=== PATIENT | male | born 1995 | race Caucasian/White ===

== ENCOUNTER 2023-06-29 10:40 | Emergency (ER) | payer OTHER ==
[2023-06-29 10:58] VITALS: BP 136/89; O2SAT 99
--- NOTE | 2023-06-29 11:00 | ED Physician Documentation ---
PD HPI UPPER EXT INJURY - Stated complaint Stated Complaint: HAND INJ, DOG BITE - Chief complaint Chief Complaint: Ext Problem - History obtained from History obtained from: Patient - History of Present Illness Location: Right, Hand, Finger (he was walking dogs with his when another dog came up to them and started fighting with their dogs. Pt tried to reach in to stop and was bit on fingers. bit in hand as well. They brought one dog to vet for wound care and then here for eval. Had not reported it. Have name/address of statement services representative.) Where injury occurred: Street Timing - onset: How many hours ago (1-2), Today Timing - details: Abrupt onset Associated symptoms: Other (he did cleanse it by washing at home [employer].). No: Weakness, Numbness Similar symptoms before: Has not had sx before Review of Systems Neurologic: denies: Focal weakness, Numbness PD PAST MEDICAL HISTORY - Past Medical History Cardiovascular: None Endocrine/Autoimmune: None - Present Medications Home Medications: Ambulatory Orders Medication Instructions Recorded Confirmed Amox/Clav 875/125 [Augmentin] 1 each PO BID #10 tablet 06/29/23 - Allergies Allergies/Adverse Reactions: Allergies Allergy/AdvReac Type Severity Reaction Status Date / Time No Known Drug Allergies Allergy Verified 06/29/23 10:56 PD ED PE NORMAL - Vitals Vital signs reviewed: Yes - General General: Alert and oriented X 3, No acute distress, Well developed/nourished - Derm Derm: Normal color, Warm and dry - Extremities Extremities: Other (right hand fingers with superficial punctures. No current bleeding. No open lacs. Good flex/extension of fingers. Normal color and cap refill. ) - Neuro Neuro: Alert and oriented X 3, No motor deficit, No sensory deficit Results - Vitals Vitals: Oxygen O2 Source Room air PD Medical Decision Making - ED course Complexity details: considered differential (has superficial punctures but enough to have bled and in concerning area (fingers) that infection would be bad. For [facility], would be low risk for rabies so await Animal Control investigation. ), d/w patient ED course: nursing reported the incident to [facility] office and they will follow up with the patients. Departure - Departure Disposition: 01 Home, Self Care Clinical Impression: Dog bite, hand Condition: Stable Record reviewed to determine appropriate education?: Yes Instructions: ED Bite Dog Follow-Up: SARAH RAHMAN MD [Primary Care Provider] - Prescriptions: Amox/Clav 875/125 [Augmentin] 1 each PO BID #10 tablet Comments: Cleanse the wound areas twice daily with soap and water and apply some ointment or keep clean. Tylenol or ibuprofen if needed for pains. Recheck if signs of infection. Dog bites are little higher risk for infection. The consequence of infection in the hand and fingers is a little higher as well. Due to that, we will typically would go with some antibiotics twice daily for the next several days to reduce the chance of infection. I sent your prescription to [facility] pharmacy in [place]. Forms: PCP List Discharge Date/Time: 06/29/23 12:27
[2023-06-29] MEDS ORDERED: AMOX/CLAV 875 MG/125 MG TABLET PO STA (11:22)
== END 2023-06-29 12:27 | disposition home or self-care (01) ==
LOC: ED 10:40
DX: S61.451A Open bite of right hand, initial encounter (principal); S61.259A Open bite of unspecified finger without damage to nail, initial encounter; W54.0XXA Bitten by dog, initial encounter; Y93.K1 Activity, walking an animal
CPT/HCPCS: 99282; 99283; A9270